=== PATIENT | female | born 1950 | race Caucasian/White ===

== ENCOUNTER 2016-12-25 09:33 | Day surgery (SDC) | payer MEDICARE, OTHER ==
[~2016-12-25 09:33] MED LIST: Lidocaine 1% with EPINEPHrine 1:100,000 50 ML MDV ONE
[2016-12-25] MEDS ORDERED: Dextrose 5%-Lactated Ringers 1,000 ML IV SCH (10:00)
[2016-12-25] MEDS ORDERED: Doxycycline 100 MG in Sodium Chloride 0.9% 100 ML IV ONE (10:00)
[2016-12-25] MEDS ORDERED: Albuterol/Ipratropium 3.0-0.5 MG/3 ML Neb Soln NEB ONE (10:00)
[2016-12-25] MEDS ORDERED: Propofol 200 MG/20 ML SDV ONE (11:04)
[2016-12-25] MEDS ORDERED: Midazolam 1 MG/ML 2 ML SDV ONE ×2 (11:04→12:10)
[2016-12-25] MEDS ORDERED: fentaNYL 100 MCG/2 ML SDV ONE (11:04)
[2016-12-25] MEDS ORDERED: Lidocaine 0.5% 50 ML SDV ONE (11:07)
[2016-12-25] MEDS ORDERED: Ketorolac 60 MG/2 ML SDV ONE (12:26)
[2016-12-25] MEDS ORDERED: Acetaminophen/HYDROcodone 325-5 MG Tab PO PRN (13:21)
[2016-12-25 14:01] VITALS: BP 120/61
--- NOTE | 2016-12-28 16:26 | OR ---
DATE OF PROCEDURE: 12/25/2016 PREOPERATIVE DIAGNOSIS: Right carpal tunnel syndrome. POSTOPERATIVE DIAGNOSES: 1. Right carpal tunnel syndrome. 2. Subfascial lipoma located within carpal tunnel. OPERATIVE PROCEDURES: 1. Right carpal tunnel release (79431). 2. Excision of lipoma located within carpal tunnel (67934). ANESTHESIA: IV block plus sedation. INDICATION FOR PROCEDURE: This is a 66-year-old female presenting with a clinically evident right carpal tunnel syndrome. This was confirmed by EMG. Plan is to proceed with a right carpal tunnel release. Potential risks including bleeding, infection, injury to the median nerve and/or its branches, possible incomplete relief of symptoms were all reviewed, and the patient wishes to proceed. DETAILS OF PROCEDURE: The patient was taken to the operating room and placed in a supine position. IV sedation was administered after which an IV block was placed affecting the right forearm and hand and those areas were then prepped and draped. A standard carpal tunnel incision was made and carried down through the skin and subcutaneous tissue, and at that point, the transverse carpal ligament was encountered and divided. This was divided at the length of the incision as well as underneath the palmar hand and somewhat proximal to the skin incision. This was very thickened and quite dense and retracted under considerable tension upon its division. The underlying median nerve appeared to be otherwise intact. Within the area of the carpal tunnel, there was a lipoma which measured 1.6 cm. This was probably contributing to some of the pressure symptoms. This was excised as well in what appeared to be a complete manner. At this point, the incision was then closed with some 4- 0 Vicryl subdermal stitch and then 4-0 Prolene skin stitch. Dressing was applied. The patient was taken to the recovery room in satisfactory condition. Adithya Pardo MD /[id number]
== END 2016-12-25 14:44 | disposition home or self-care (01) ==
LOC: JP.SDS 09:33
PROVIDERS: ATTEND Surgery
DX: G56.01 Carpal tunnel syndrome, right upper limb (principal); D17.21 Benign lipomatous neoplasm of skin and subcutaneous tissue of right arm; I10 Essential (primary) hypertension; J44.9 Chronic obstructive pulmonary disease, unspecified; E66.01 Morbid (severe) obesity due to excess calories; Z88.0 Allergy status to penicillin; Z88.2 Allergy status to sulfonamides; Z88.8 Allergy status to other drugs, medicaments and biological substances; Z88.1 Allergy status to other antibiotic agents; Z91.018 Allergy to other foods; Z87.891 Personal history of nicotine dependence; Z98.890 Other specified postprocedural states; Z68.30 Body mass index [BMI] 30.0-30.9, adult
CPT/HCPCS: 25076; 64721; 88304; A9270; J1885; J2250; J2704; J3010; J7030; J7042; J7620